=== PATIENT | male | born 1935 | race Caucasian/White ===

== ENCOUNTER 2016-11-17 16:23 | Emergency (ER) | payer MEDICARE ==
[~2016-11-17 16:23] MED LIST: ALEVE220 MG PO; AMB10 PO; ASAB PO; BUM2 PO; C25 PO; COLCH6 PO; COREG12 PO; COZ25 PO; DEMA10T PO; HCTZ25B PO; KDUR10 PO; KLOR-CON20 MEQ PO; MICRO-K10 MEQ PO; NORV5 PO; P5 PO; PRAVAC PO; PRILO PO; Potassium; TYLENOL ARTH650 MG PO; TYLENOL PM PO; ULTRAM50 PO; VASOTEC20 MG PO; Z100 PO; Z300 PO; [UNRECOGNIZED DRUG - OTHER] PO
[2016-11-17 17:55] LABS: WBC (NOT ORDERED) (RFLEX) 0 (0-5)
[2016-11-17 18:00] LABS: BASOPHILS 0.5 %; BASOPHILS ABSOLUTE 0.03 10/3/uL (0.0-0.16); EOSINOPHILS 0.7 %; EOSINOPHILS ABSOLUTE 0.04 10/3/uL (0.0-0.53); HEMATOCRIT 39.4 % (40.0-51.0); HEMOGLOBIN 13.1 g/dL (13.6-17.8); IMMATURE GRANULOCYTES 0.2 %; IMMATURE GRANULOCYTES ABSOLUTE 0.01 10/3/uL (0.0-0.11); LYMPHOCYTES 15.2 %; LYMPHOCYTES ABSOLUTE 0.87 10/3/uL (0.67-4.30); MEAN CORPUS HGB CONC 33.2 g/dL (32.0-36.0); MEAN PLATELET VOLUME 11.1 fL (9.2-13.0); MONOCYTES 12.8 %; MONOCYTES ABSOLUTE 0.73 10/3/uL (0.21-1.20); NEUTROPHILS 70.6 %; NEUTROPHILS ABSOLUTE 4.04 10/3/uL (2.02-8.40); PLATELET COUNT 138 10/3/uL (150-400); RBC DISTRIBUTION WIDTH 16.5 % (12.0-16.0); RED CELL COUNT 4.59 10/6/uL (4.7-6.1); WHITE BLOOD CELLS 5.7 10/3/uL (4.5-10.5)
[2016-11-17 18:03] LABS: MANUAL DIFF NO %; MEAN CORPUSCULAR HEMOGLOB 28.5 pg (26.0-34.0); MEAN CORPUSCULAR VOLUME 85.8 fL (80-100)
[2016-11-17 18:09] LABS: ASCORBIC ACID (UR NOT ORDER) NEG (NEG); BILIRUBIN, URINE NEGATIVE (NEG); ER URINALYSIS TAT 0 Hrs 15 Mins; KETONE, URINE NEGATIVE (NEG); LEUKOCYTE ESTERASE(NOT OR NEG (NEG); NITRITE (URINE) NEG (NEG)
[2016-11-17 18:14] LABS: ALBUMIN 3.6 G/DL (3.5-5.0); ALKALINE PHOSPHATASE 68 U/L (45-117); BUN (BLOOD UREA NITROGEN) 36 MG/DL (6-23); CHLORIDE, SERUM 106 MMOL/L (96-112); CO2 (CARBON DIOXIDE) 24 MMOL/L (24-34); CREATININE 2.28 MG/DL (0.70-1.30); GFR AFRICAN AMERICAN 30 ML/MIN (>=60); GFR NON AFRICAN AMERICAN 26 ML/MIN (>=60); GLOBULIN 3.7 G/DL (2.5-4.1); GLUCOSE, SERUM 103 MG/DL (60-99); POTASSIUM, SERUM 3.4 MMOL/L (3.5-5.3); SGOT(AST) 30 U/L (5-40); SGPT(ALT) 26 U/L (5-65); SODIUM, SERUM 140 MMOL/L (135-148); TOTAL BILIRUBIN 0.5 MG/DL (0-1.2); TOTAL PROTEIN 7.3 G/DL (6.0-8.5)
[2016-11-17 18:18] LABS: BAND NEUTROPHILS 6 %; EOSINOPHILS 1 %; EOSINOPHILS ABSOLUTE (CALC) 0.06 10/3/uL (0.0-0.53); ER DIFF TAT 0 Hrs 24 Mins; LYMPHOCYTES 9 %; LYMPHOCYTES ABSOLUTE (CALC) 0.51 10/3/uL (0.67-4.30); MONOCYTES 7 %; NEUTROPHILS ABSOLUTE (CALC) 4.73 10/3/uL (2.02-8.40); SEGMENTED NEUTROPHIL (0) 77 %; TOTAL NUCLEATED CELLS 100
[2016-11-17 18:19] LABS: PLATELET ESTIMATE SLT DEC (ADEQUATE); RBC MORPHOLOGY NORM (NORMAL)
== END 2016-11-17 21:01 | disposition left against medical advice (07) ==
LOC: ER 16:23
PROVIDERS: Emergency Medicine
DX: R19.7 Diarrhea, unspecified (principal); R11.2 Nausea with vomiting, unspecified; Z53.21 Procedure and treatment not carried out due to patient leaving prior to being seen by health care provider
CPT/HCPCS: 80053; 81001; 83690; 85025